=== PATIENT | male | born 1990 | race Caucasian/White ===

== ENCOUNTER 2022-10-14 10:51 | Emergency (ER) | payer MEDICAID ==
[~2022-10-14] VITALS: Ht 190.5 cm; Wt 122.0 kg
[2022-10-14 10:52] VITALS: BP 122/85
[2022-10-14] MEDS ORDERED: CLON-528 PO ×3 (11:54→13:15)
== END 2022-10-14 12:17 | disposition home or self-care (01) ==
LOC: ER 10:52
DX: F41.9 Anxiety disorder, unspecified (principal); F17.200 Nicotine dependence, unspecified, uncomplicated; Z79.899 Other long term (current) drug therapy
CPT/HCPCS: 99281; 99283

== ENCOUNTER 2022-11-20 09:28 | Emergency (ER) | payer MEDICAID ==
[~2022-11-20] VITALS: Ht 190.5 cm; Wt 130.2 kg
[~2022-11-20 09:28] MED LIST: CLON-528 PO
[2022-11-20 09:35] VITALS: BP 143/71
== END 2022-11-20 10:17 | disposition home or self-care (01) ==
LOC: ER 09:29
DX: S63.501A Unspecified sprain of right wrist, initial encounter (principal); Z88.0 Allergy status to penicillin; X58.XXXA Exposure to other specified factors, initial encounter; Y93.89 Activity, other specified; Y92.89 Other specified places as the place of occurrence of the external cause; Y99.8 Other external cause status
CPT/HCPCS: 29125; 73130; 99283

== ENCOUNTER 2022-12-27 09:49 | Emergency (ER) | payer MEDICAID ==
[~2022-12-27] VITALS: Ht 190.5 cm; Wt 110.0 kg
[2022-12-27 10:05] VITALS: BP 142/91; PULSE 86; RESP 18; TEMP 98.5; O2SAT 95
[2022-12-27] MEDS ORDERED: dexamethasone sod phosphate 10mg/ml inj PO STA (10:09)
[2022-12-27] MEDS ORDERED: LIDO20SO16 PO (10:36)
[2022-12-27] MEDS ORDERED: BENZ1LOZ74 PO (10:36)
[2022-12-27] MEDS ORDERED: IBUP-1986 PO (10:36)
== END 2022-12-27 11:39 | disposition home or self-care (01) ==
LOC: ER 09:49
DX: J02.9 Acute pharyngitis, unspecified (principal); R50.9 Fever, unspecified; R59.0 Localized enlarged lymph nodes; Z88.0 Allergy status to penicillin; Z79.899 Other long term (current) drug therapy
CPT/HCPCS: 87081; 87880; 99283

== ENCOUNTER 2022-12-29 08:16 | Emergency (ER) | payer MEDICAID ==
[~2022-12-29] VITALS: Ht 190.5 cm; Wt 123.2 kg
[~2022-12-29 08:16] MED LIST changes: +BENZ1LOZ74 PO; +IBUP-1986 PO; +LIDO20SO16 PO
[2022-12-29] MEDS ORDERED: LIDOcaine Viscous 15ml cup MM PRN (08:40)
[2022-12-29] MEDS ORDERED: CLIN-97 PO (09:28)
[2022-12-29] MEDS ORDERED: PRED20TA PO (09:28)
[2022-12-29 09:59] VITALS: BP 146/88; PULSE 95; RESP 18; TEMP 98.1; O2SAT 97
== END 2022-12-29 10:01 | disposition home or self-care (01) ==
LOC: ER 08:16
DX: J02.9 Acute pharyngitis, unspecified (principal); J45.909 Unspecified asthma, uncomplicated; R22.1 Localized swelling, mass and lump, neck; I10 Essential (primary) hypertension; Z88.0 Allergy status to penicillin; Z79.899 Other long term (current) drug therapy
CPT/HCPCS: 99283

== ENCOUNTER 2023-11-07 19:57 | Emergency (ER) | payer MEDICAID ==
[~2023-11-07 19:57] MED LIST changes: +CLIN-97 PO; -CLON-528 PO; +CLON-850 PO
== END 2023-11-07 21:05 | disposition left against medical advice (07) ==
LOC: ER 19:57
DX: M79.606 Pain in leg, unspecified (principal); Z53.21 Procedure and treatment not carried out due to patient leaving prior to being seen by health care provider

== ENCOUNTER 2023-11-12 10:41 | Emergency (ER) | payer MEDICAID ==
[~2023-11-12] VITALS: Ht 190.5 cm; Wt 131.8 kg
[2023-11-12 10:51] VITALS: TEMP 98.7
[2023-11-12 12:37] VITALS: BP 137/86; PULSE 73; O2SAT 99
[2023-11-12] MEDS ORDERED: LIDO700A32 TOP (13:02)
[2023-11-12 13:08] VITALS: RESP 16
[2023-11-12] MEDS: ketorolac tromethamine 15mg/ml inj. IM ONE (13:08)
[2023-11-12] MEDS: cyclobenzaprine 10mg tablet PO ONE (13:08)
== END 2023-11-12 13:32 | disposition home or self-care (01) ==
LOC: ER 10:42
DX: S93.401A Sprain of unspecified ligament of right ankle, initial encounter (principal); M25.561 Pain in right knee; M25.551 Pain in right hip; M79.671 Pain in right foot; M79.672 Pain in left foot; I10 Essential (primary) hypertension; J45.909 Unspecified asthma, uncomplicated; Z88.0 Allergy status to penicillin; Z79.899 Other long term (current) drug therapy; Z79.1 Long term (current) use of non-steroidal anti-inflammatories (NSAID); Z79.2 Long term (current) use of antibiotics; W19.XXXA Unspecified fall, initial encounter; Y93.89 Activity, other specified; Y92.89 Other specified places as the place of occurrence of the external cause; Y99.8 Other external cause status
CPT/HCPCS: 73502; 73564; 96372; 99284; J1885

== ENCOUNTER 2023-11-14 05:29 | Emergency (ER) | payer MEDICAID ==
[~2023-11-14] VITALS: Ht 190.5 cm; Wt 127.7 kg
[~2023-11-14 05:29] MED LIST changes: +LIDO700A32 TOP
[2023-11-14 06:11] VITALS: BP 116/76; PULSE 86; RESP 18; TEMP 97.7; O2SAT 97
[2023-11-14 08:00] LABS: BASOPHILS # (AUTO) 0.1 X10'3 (0-0.2); BASOPHILS % (AUTO) 0.6 % (0-1); EOSINOPHILS # (AUTO) 0.3 X10'3 (0-0.9); EOSINOPHILS % (AUTO) 2.9 % (0-6); LYMPHOCYTES # (AUTO) 2.2 X10'3 (1.1-4.8); LYMPHOCYTES % (AUTO) 24.7 % (21-51); MEAN CORPUSCULAR HEMOGLOBIN 29.8 PG (27.0-31.0); MEAN CORPUSCULAR HGB CONC 34.2 g/dL (33.0-36.5); MEAN CORPUSCULAR VOLUME 87.1 FL (78-98); MONOCYTES # (AUTO) 0.8 X10'3 (0-0.9); MONOCYTES % (AUTO) 9.4 % (2-12); NEUTROPHILS # (AUTO) 5.5 X10'3 (1.8-7.7); NEUTROPHILS % (AUTO) 62.4 % (42-75); PLATELET COUNT 245 X10'3 (140-440); WHITE BLOOD COUNT 8.8 X10'3 (4.5-11.0)
[2023-11-14 08:13] LABS: ALBUMIN 3.3 G/DL (3.4-5.0); ANION GAP 6 (8-16); BLOOD UREA NITROGEN 16 MG/DL (7-18); BUN/CREATININE RATIO 15.4 (10.0-20.0); CALCIUM 8.5 MG/DL (8.5-10.1); CHLORIDE 105 MMOL/L (99-107); CREATININE 1.04 MG/DL (0.60-1.10); GLUCOSE 114 MG/DL (70-104); POTASSIUM 3.6 MMOL/L (3.5-5.1); SODIUM 140 MMOL/L (135-145); TOTAL CARBON DIOXIDE 29.2 MMOL/L (24-32); eCRCL 120 ML/MIN; eGFR 82 ML/MIN
[2023-11-14 08:15] LABS: ETHANOL < 10 MG/DL (<10)
[2023-11-14] MEDS ORDERED: LIDO700A47 TOP (09:38)
[2023-11-14] MEDS ORDERED: ALBU90AE INH (09:38)
[2023-11-14] MEDS ORDERED: CLON1TAB2 PO (09:38)
[2023-11-14] MEDS ORDERED: IBUP-1984 PO (09:44)
[2023-11-14 09:51] LABS: BILIRUBIN,URINE SMALL (Neg); CLARITY,URINE SLIGHTLY CLOUDY (Clear); COLOR,URINE YELLOW (Yellow); GLUCOSE, URINE NEGATIVE (Neg); KETONES,URINE NEGATIVE (Neg); LEUKOCYTE ESTERASE ,URINE NEGATIVE (Neg); NITRITES, URINE NEGATIVE (Neg); OCCULT BLOOD,URINE NEGATIVE (Neg); PROTEIN,URINE NEGATIVE (Neg)
[2023-11-14 09:53] LABS: URINE AMPHETAMINE SCREEN POSITIVE (Neg); URINE BARBITUATE SCREEN NEGATIVE (Neg); URINE BENZODIAZEPINES SCREEN NEGATIVE (Neg); URINE CANNABINOID SCREEN POSITIVE (Neg); URINE COCAINE SCREEN NEGATIVE (Neg); URINE METHADONE SCREEN NEGATIVE (Neg); URINE OPIATE SCREEN NEGATIVE (Neg); URINE PHENCYCLIDINE SCREEN NEGATIVE (Neg)
[2023-11-14 09:55] LABS: UA COLLECTION TYPE CLN CATCH MIDSTREAM
[2023-11-14 10:05] LABS: BACTERIA,URINE FEW /HPF (Neg); MUCUS STRANDS MANY /LPF (Neg); RBC,URINE NONE SEEN /HPF (0-2); SQUAMOUS EPITHELIAL CELL,UR FEW /LPF (FEW); WBC,URINE 0-4 /HPF (0-4)
[2023-11-14 10:34] LABS: THYROID STIMULATING HORMONE 2.76 ulU/ml (0.34-4.50)
[2023-11-14] MEDS ORDERED: LIDOcaine 5% patch TP PRN (10:45)
[2023-11-14] MEDS ORDERED: ibuprofen 200mg tablet PO PRN (10:45)
[2023-11-14] MEDS ORDERED: albuterol 2.5 MG/3 ML nebule NEB PRN (10:50)
[2023-11-14] MEDS: clonazePAM 1mg tablet PO PRN (11:18)
[2023-11-14 14:56] LABS: ALANINE AMINOTRANSFERASE 28 U/L (12-78); ALBUMIN/GLOBULIN RATIO 0.9 (1.1-1.5); ALKALINE PHOSPHATASE 85 IU/L (46-116); ASPARTATE AMINO TRANSFERASE 36 U/L (10-37); BILIRUBIN,DIRECT 0.2 MG/DL (0-0.3); BILIRUBIN,TOTAL 0.6 MG/DL (0.1-1.0); TOTAL PROTEIN 7.1 G/DL (6.4-8.2)
== END 2023-11-14 16:04 ==
LOC: ER 05:30
DX: R45.851 Suicidal ideations (principal); Z20.822 Contact with and (suspected) exposure to COVID-19; F32.A Depression, unspecified; I10 Essential (primary) hypertension; J45.909 Unspecified asthma, uncomplicated; Z88.0 Allergy status to penicillin; Z79.899 Other long term (current) drug therapy; Z79.1 Long term (current) use of non-steroidal anti-inflammatories (NSAID); Z79.2 Long term (current) use of antibiotics
CPT/HCPCS: 36415; 80048; 80076; 80305; 80320; 81001; 84443; 85025; 87811; 99285; C2617

== ENCOUNTER 2024-10-12 15:57 | Emergency (ER) | payer MEDICAID ==
[~2024-10-12] VITALS: Ht 190.5 cm; Wt 127.3 kg
[~2024-10-12 15:57] MED LIST changes: +ALBU90AE INH; -BENZ1LOZ74 PO; -CLIN-97 PO; -CLON-850 PO; +CLON1TAB2 PO; +IBUP-1984 PO; -IBUP-1986 PO; -LIDO20SO16 PO; -LIDO700A32 TOP; +LIDO700A47 TOP
[2024-10-12 16:08] VITALS: BP 127/85; PULSE 83; RESP 16; TEMP 98.5; O2SAT 99
== END 2024-10-12 18:59 | disposition left against medical advice (07) ==
LOC: ER 15:58
DX: M25.512 Pain in left shoulder (principal); Z88.0 Allergy status to penicillin; Z53.21 Procedure and treatment not carried out due to patient leaving prior to being seen by health care provider; W01.0XXA Fall on same level from slipping, tripping and stumbling without subsequent striking against object, initial encounter; Y93.89 Activity, other specified; Y92.89 Other specified places as the place of occurrence of the external cause; Y99.8 Other external cause status